=== PATIENT | male | born 1940 | race Caucasian/White ===

== ENCOUNTER 2020-09-23 21:18 | Outpatient (CLI) | payer MEDICARE, SELFPAY ==
[2020-09-23 21:49] LABS: Alanine Aminotransferase 12 U/L (0-41); Albumin Level 3.1 g/dL (3.5-5.2); Alkaline Phosphatase 130 IU/L (40-130); Anion Gap 12.2 (5-19); Aspartate Amino Transferase 21 U/L (0-40); Blood Urea Nitrogen 10 mg/dL (8-23); Calcium 8.6 mg/dL (8.5-10.5); Carbon Dioxide 29 mmol/L (22-29); Chloride 101 mmol/L (98-107); Globulin 2.6 g/dL (1.3-4.6); Glucose 94 mg/dL (65-115); Osmolality Calculated 287 mOsm/kg (285-295); Potassium 3.2 mmol/L (3.5-5.1); Sodium 139 mmol/L (136-145); Total Bilirubin 0.3 mg/dL (0.15-1.2); Total Protein 5.7 g/dL (6.6-8.7)
== END 2020-09-23 21:19 | disposition home or self-care (01) ==
PROVIDERS: Visit Provider Internal Medicine
DX: I69.391 Dysphagia following cerebral infarction (principal)
CPT/HCPCS: 80053